=== PATIENT | female | born 1990 | race Caucasian/White ===

== ENCOUNTER 2016-07-19 09:00 | Emergency (ER) | payer OTHER ==
[2016-07-19 09:01] VITALS: BMI 46.5
[2016-07-19 09:53] VITALS: BP 117/77; PULSE 77; RESP 16; TEMP 98.9; O2SAT 99
--- NOTE | 2016-07-19 10:21 | C.PDOC ---
History Of Present Illness 25 yr old female presents to the ER for evaluation of rash on bilateral thighs for the past few days. Patient reports similar rash notice don daughter to the right shoulder and head for the past few days. Patient denies fever, chills, previous known allergies, cough, chest pain, SOB or wheezing. Time Seen by Provider: 07/19/16 09:55 Chief Complaint (Nursing): Abnormal Skin Integrity History Per: Patient History/Exam Limitations: no limitations Onset/Duration Of Symptoms: Days (Few days) Current Symptoms Are (Timing): Still Present Past Medical History Reviewed: Historical Data, Nursing Documentation, Vital Signs Vital Signs: Last Vital Signs Temp 98.9 F 07/19/16 09:51 Pulse 77 07/19/16 09:51 Resp 16 07/19/16 09:51 BP 117/77 07/19/16 09:51 Pulse Ox 99 07/19/16 10:39 - [facility] Procedures LARYGNOSCOPY AND OTH TRACHEOSCOPY (12/21/13) Family History: States: No Known Family Hx - Social History Hx Tobacco Use: No Hx Alcohol Use: No Hx Substance Use: No - Immunization History Hx Tetanus Toxoid Vaccination: Yes Hx Influenza Vaccination: Yes Hx Pneumococcal Vaccination: Yes Review Of Systems Except As Marked, All Systems Reviewed And Found Negative. Constitutional: Negative for: Fever, Chills Cardiovascular: Negative for: Chest Pain Respiratory: Negative for: Cough, Shortness of Breath, Wheezing Skin: Positive for: Rash (Bilateral thighs. ) Physical Exam - Physical Exam Appears: Well, Non-toxic, No Acute Distress Skin: Normal Color, Warm, Rash (erythematous, raised scaly patches with sharply defined edges to B/L thighs. No cellulitis.) Extremity: Normal ROM, No Pedal Edema, No Deformity Extremity: Bilateral: Atraumatic Neurological/Psych: Oriented x3, Normal Speech ED Course And Treatment O2 Sat by Pulse Oximetry: 99 Pulse Ox Interpretation: Normal Progress Note: On re-eavl, pt is afebrile, hemodynamicaly stable. NOn-toxic. PulseOx 99% RA. ENT: no acute findings. SKin: exam c/w timea corporis, (+) sick contact. Pt advised. ref. to f/u with PMD and Derm in 2-3 days for re- eval. return if any new changes. Disposition Counseled Patient/Family Regarding: Diagnosis, Need For Followup, Rx Given - Disposition Referrals: [facility] [Outside] Disposition: HOME/ ROUTINE Disposition Time: 09:55 Condition: STABLE Additional Instructions: Apply cream as prescribed Follow up with PMD In 2-3 days for re-evaluation. 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 - Scribe Statement The provider has reviewed the documentation as recorded by the Scribe Kaylee Fernández All medical record entries made by the Scribe were at my direction and personally dictated by me. I have reviewed the chart and agree that the record accurately reflects my personal performance of the history, physical exam, medical decision making, and the department course for this patient. I have also personally directed, reviewed, and agree with the discharge instructions and disposition.
== END 2016-07-19 10:46 | disposition home or self-care (01) ==
LOC: C.ER 09:00
DX: B35.4 Tinea corporis (principal)

== ENCOUNTER 2016-09-23 15:27 | Emergency (ER) | payer OTHER ==
[2016-09-23 15:27] VITALS: BMI 46.5
[2016-09-23 15:50] VITALS: RESP 18; TEMP 97.8
[2016-09-23] MEDS ORDERED: Apap-Butalbital-Caffeine 325-50-40mg Tab PO STA (16:05)
[2016-09-23] MEDS ORDERED: Apap-Butalbital-Caffeine 325-50-40mg Tab ONE (16:09)
--- NOTE | 2016-09-23 16:40 | C.PDOC ---
Time Seen by Provider: 09/23/16 15:50 Chief Complaint (Nursing): Headache History Per: Patient Onset/Duration Of Symptoms: Days (3), Gradual Current Symptoms Are (Timing): Still Present Severity: Moderate Quality: "Pain" Associated Symptoms: denies: Photophobia, Blurred Vision, Nausea, Vomiting, Extremity Weakness Additional History Per: Prior Records Past Medical History Reviewed: Historical Data, Nursing Documentation, Vital Signs Vital Signs: Last Vital Signs Temp 97.8 F 09/23/16 15:46 Pulse 88 09/23/16 15:46 Resp 18 09/23/16 15:46 BP 104/67 09/23/16 15:46 Pulse Ox 97 09/23/16 16:40 - Medical History PMH: No Chronic Diseases Surgical History: - [facility] Procedures LARYGNOSCOPY AND OTH TRACHEOSCOPY (12/21/13) Family History: States: Unknown Family Hx - Social History Hx Tobacco Use: No Hx Alcohol Use: No Hx Substance Use: No - Immunization History Hx Tetanus Toxoid Vaccination: Yes Hx Influenza Vaccination: Yes Hx Pneumococcal Vaccination: Yes Review Of Systems Except As Marked, All Systems Reviewed And Found Negative. Constitutional: Negative for: Fever, Weakness Eyes: Negative for: Pain, Vision Change ENT: Negative for: Nose Congestion, Throat Pain Cardiovascular: Negative for: Chest Pain Respiratory: Negative for: Shortness of Breath Gastrointestinal: Negative for: Nausea, Vomiting, Abdominal Pain Musculoskeletal: Positive for: Back Pain. Negative for: Neck Pain Skin: Negative for: Rash Neurological: Positive for: Headache. Negative for: Weakness, Numbness, Incoordination, Change in Speech, Confusion, Seizures, Altered Mental Status Physical Exam - Physical Exam Appears: Non-toxic, No Acute Distress Skin: Normal Color, Warm, Dry, No Rash Head: Atraumatic, Normacephalic Eye(s): bilateral: Normal Inspection, PERRL, EOMI Neck: Normal ROM, Supple Cardiovascular: Rhythm Regular Respiratory: Normal Breath Sounds, No Accessory Muscle Use Gastrointestinal/Abdominal: Soft, No Tenderness Back: No CVA Tenderness Extremity: Normal ROM Neurological/Psych: Oriented x3, Normal Speech, Normal Cognition, No Cerebellar Signs, Normal Motor, Normal Sensation ED Course And Treatment O2 Sat by Pulse Oximetry: 97 Pulse Ox Interpretation: Normal Reassessment Condition: Improved Disposition Counseled Patient/Family Regarding: Diagnosis, Need For Followup, Rx Given - Disposition Disposition: HOME/ ROUTINE Disposition Time: 16:50 Condition: STABLE Additional Instructions: Follow up with your doctor for further evaluation and treatment. Return to the ER if you develop vomiting, fever, stiff neck, worsening of symptoms or if you have any other concerns. Prescriptions: Acetaminophen/Butalbital/Caf [Fioricet] 1 tab PO TID PRN #20 tab PRN Reason: Headache Instructions: General Headache (ED) - Clinical Impression Clinical Impression: Headache
[2016-09-23 16:58] VITALS: BP 105/67; PULSE 76; O2SAT 98
== END 2016-09-23 16:57 | disposition home or self-care (01) ==
LOC: C.ER 15:27
DX: R51 Headache (principal)

== ENCOUNTER 2016-09-29 09:27 | Emergency (ER) | payer OTHER ==
[2016-09-29 09:27] VITALS: BMI 46.5
[2016-09-29 09:43] VITALS: BP 115/74; PULSE 89; RESP 18; TEMP 98; O2SAT 98
--- NOTE | 2016-09-29 09:48 | C.PDOC ---
History Of Present Illness 25 y/o female presents to the ED with complains of nasal congestion and mild dry nonproductive cough x2 days. Pt drank herbal tea as home remedy. Missed work today. Denies fever, sore throat, SOB, vomiting or any other complaints. Time Seen by Provider: 09/29/16 09:43 Chief Complaint (Nursing): Cough, Cold, Congestion History Per: Patient History/Exam Limitations: no limitations Onset/Duration Of Symptoms: Days Current Symptoms Are (Timing): Still Present Sick Contacts (Context): None Associated Symptoms: Cough, Nasal Congestion. denies: Fever, Chills, Sore Throat, Sputum, Vomiting Severity: Mild Recent travel outside of the [place]: No Past Medical History Reviewed: Historical Data, Nursing Documentation, Vital Signs Vital Signs: Last Vital Signs Temp 98 F 09/29/16 09:43 Pulse 89 09/29/16 09:43 Resp 18 09/29/16 09:43 BP 115/74 09/29/16 09:43 Pulse Ox 98 09/29/16 09:48 Surgical History: - [facility] Procedures LARYGNOSCOPY AND OTH TRACHEOSCOPY (12/21/13) Family History: States: Unknown Family Hx - Social History Hx Tobacco Use: No Hx Alcohol Use: No Hx Substance Use: No - Immunization History Hx Tetanus Toxoid Vaccination: Yes Hx Influenza Vaccination: Yes Hx Pneumococcal Vaccination: Yes Review Of Systems Except As Marked, All Systems Reviewed And Found Negative. Constitutional: Negative for: Fever, Chills ENT: Positive for: Nose Congestion. Negative for: Throat Pain Respiratory: Positive for: Cough. Negative for: Shortness of Breath Gastrointestinal: Negative for: Vomiting Physical Exam - Physical Exam Appears: Non-toxic, No Acute Distress Skin: Warm, Dry, No Rash Head: Atraumatic, Normacephalic Ear(s): Bilateral: Normal Nose: Normal Oral Mucosa: Moist Throat: Normal, No Erythema Neck: Normal, Normal ROM, Supple Chest: Symmetrical Cardiovascular: Rhythm Regular, No Murmur Respiratory: Normal Breath Sounds, No Rales, No Rhonchi, No Wheezing Gastrointestinal/Abdominal: Normal Exam, Soft, No Tenderness Extremity: Bilateral: Atraumatic Neurological/Psych: Oriented x3 ED Course And Treatment O2 Sat by Pulse Oximetry: 98 (room air) Pulse Ox Interpretation: Normal Medical Decision Making Medical Decision Making: nasal congestion dry non-prod cough c/w seasonal allergies vs viral syndrome ( summertime seasonal allergies are predominant now) Disposition Doctor Will See Patient In The: Office Counseled Patient/Family Regarding: Studies Performed, Diagnosis - Disposition Referrals: [facility] at [facility] [Outside] Disposition: HOME/ ROUTINE Disposition Time: 09:48 Condition: GOOD Additional Instructions: continue Dayquil/Nyquil as directed for symptomatic relief. Follow-up in our Clinic as needed. Forms: Work Excuse - Clinical Impression Clinical Impression: URI with cough and congestion - Scribe Statement The provider has reviewed the documentation as recorded by the Richi Samuel Provider Attestation: All medical record entries made by the Richi were at my direction and personally dictated by me. I have reviewed the chart and agree that the record accurately reflects my personal performance of the history, physical exam, medical decision making, and the department course for this patient. I have also personally directed, reviewed, and agree with the discharge instructions and disposition.
[2016-09-29] MEDS ORDERED: guaiFENesin 100 mg/5 ml Syrup UD ONE (10:01)
[2016-09-29] MEDS: guaiFENesin 100 mg/5 ml Syrup UD PO STA (10:01)
== END 2016-09-29 10:02 | disposition home or self-care (01) ==
LOC: C.ER 09:27
DX: J06.9 Acute upper respiratory infection, unspecified (principal); R05 Cough; R09.81 Nasal congestion

== ENCOUNTER 2016-10-15 15:02 | Emergency (ER) | payer OTHER ==
[2016-10-15 15:02] VITALS: BMI 46.5
[2016-10-15 15:08] VITALS: TEMP 98.9
[2016-10-15] MEDS ORDERED: Penicillin G Benz 600,000 Unit/ml Syr IM STA (15:35)
--- NOTE | 2016-10-15 15:41 | C.PDOC ---
History Of Present Illness 26 y/o female presents to the ED with complaints of sore throat and redness x2 days, also noting pus this morning. Pt also reports pain with swallowing. Denies drooling, change in voice, cough, nasal congestion, fever or any other complaints. Time Seen by Provider: 10/15/16 15:15 Chief Complaint (Nursing): ENT Problem History Per: Patient History/Exam Limitations: None Onset/Duration Of Symptoms: Days Current Symptoms Are (Timing): Still Present Symptoms Have Been: Continuous Severity: Moderate Anticoagulant/Antiplatlet Use?: No Past Medical History Reviewed: Historical Data, Nursing Documentation, Vital Signs Vital Signs: Last Vital Signs Temp 98.9 F 10/15/16 15:06 Pulse 88 10/15/16 15:45 Resp 18 10/15/16 15:45 BP 128/75 10/15/16 15:45 Pulse Ox 98 10/15/16 15:45 Surgical History: - [facility] Procedures LARYGNOSCOPY AND OTH TRACHEOSCOPY (12/21/13) Family History: States: Unknown Family Hx - Social History Hx Tobacco Use: No Hx Alcohol Use: No Hx Substance Use: No - Immunization History Hx Tetanus Toxoid Vaccination: Yes Hx Influenza Vaccination: Yes Hx Pneumococcal Vaccination: Yes Review Of Systems Except As Marked, All Systems Reviewed And Found Negative. Constitutional: Negative for: Fever, Chills ENT: Positive for: Throat Pain, Other (pus at back of throat). Negative for: Nose Congestion Respiratory: Negative for: Cough Physical Exam - Physical Exam Appears: Non-toxic, No Acute Distress Skin: Warm, Dry, No Rash Head: Atraumatic, Normacephalic Ear(s): Bilateral: Normal Nose: Normal Oral Mucosa: Moist Throat: Erythema, Exudate (bilateral), Other (uvula midline) Lymphatic: Adenopathy (cervical) Chest: Symmetrical Cardiovascular: Rhythm Regular, No Murmur Respiratory: Normal Breath Sounds, No Rales, No Rhonchi, No Wheezing Gastrointestinal/Abdominal: Normal Exam, Soft, No Tenderness Neurological/Psych: Oriented x3, Normal Speech ED Course And Treatment O2 Sat by Pulse Oximetry: 100 (room air) Pulse Ox Interpretation: Normal Medical Decision Making Medical Decision Making: Treat patient for strep/pharyngitis Patient wanted to Bicillin IM shot instead of the pills. She has no allergies to any medications. She is able to tolerate PO food and fluids. She will f/u with the clinic in 2 days. Disposition Counseled Patient/Family Regarding: Diagnosis, Need For Followup, Rx Given - Disposition Referrals: at [facility] [Outside] Disposition: HOME/ ROUTINE Disposition Time: 15:45 Condition: GOOD Additional Instructions: Ms Michel, thank you for letting us take care of you today. Your provider was Dr. De Guzman. You were treated for Pharyngitis. The emergency medical care you received today was directed at your acute symptoms. If you were prescribed any medication, please fill it and take as directed. It may take several days for your symptoms to resolve. Return to the Emergency Department if your symptoms worsen, do not improve, or if you have any other problems. Please contact your doctor or call one of the physicians/clinics you have been referred to that are listed on the Patient Visit Information form that is included in your discharge packet. Bring any paperwork you were given at discharge with you along with any medications you are taking to your follow up visit. Our treatment cannot replace ongoing medical care by a primary care provider (PCP) outside of the emergency department. Thank you for allowing the [facility] team to be part of your care today. If you had an X-Ray or CT scan: A Radiologist will review the ED reading if any change in treatment is needed we will contact you. If you had a blood, urine, or wound culture: It will take several days for the results, if any change in treatment is needed we will contact you. If you had an STI test: It will take 48 hours for the results. Please call after 1 week if you have not heard back. Instructions: Pharyngitis (ED) Forms: [employer] ([place]wana) - Clinical Impression Clinical Impression: Pharyngitis - Scribe Statement The provider has reviewed the documentation as recorded by the Richi Samuel Provider Attestation: All medical record entries made by the Richi were at my direction and personally dictated by me. I have reviewed the chart and agree that the record accurately reflects my personal performance of the history, physical exam, medical decision making, and the department course for this patient. I have also personally directed, reviewed, and agree with the discharge instructions and disposition.
[2016-10-15] MEDS ORDERED: Penicillin G Benzathine 1.2 Mill Unit/2 ml Syr IM ONE (15:42)
[2016-10-15 15:45] VITALS: BP 128/75; PULSE 88; RESP 18
[2016-10-15 16:48] VITALS: O2SAT 100
== END 2016-10-15 15:54 | disposition home or self-care (01) ==
LOC: C.ER 15:02
DX: J02.9 Acute pharyngitis, unspecified (principal)
CPT/HCPCS: 96372; 99283; J2510

== ENCOUNTER 2017-05-31 15:20 | Emergency (ER) | payer OTHER ==
[2017-05-31 15:20] VITALS: BMI 46.5
[2017-05-31 16:11] VITALS: TEMP 98.4
--- NOTE | 2017-05-31 17:17 | C.PDOC ---
History Of Present Illness 26 year old female presents to the ED for evaluation of chest congestion and non -productive cough since yesterday. Patient denies history of asthma, fever, or any other associated symptoms. 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 NO ASTHMA, FEVER OTHER ASSOC SX EXAM NARD HEENT NEG LUNGS CTA B/L NO W/R/R REMAINDER NEG Time Seen by Provider: 05/31/17 16:19 Chief Complaint (Nursing): ENT Problem History Per: Patient History/Exam Limitations: no limitations Onset/Duration Of Symptoms: Hrs Current Symptoms Are (Timing): Still Present Associated Symptoms: Cough, Other (chest congestion ). denies: Fever, Sputum Additional History Per: Patient Past Medical History Reviewed: Historical Data, Nursing Documentation, Vital Signs Vital Signs: Last Vital Signs Temp 98.4 F 05/31/17 16:08 Pulse 80 05/31/17 17:57 Resp 16 05/31/17 17:57 BP 108/75 05/31/17 17:57 Pulse Ox 98 05/31/17 17:57 - Medical History PMH: No Chronic Diseases Surgical History: - [facility] Procedures LARYGNOSCOPY AND OTH TRACHEOSCOPY (12/21/13) Family History: States: Unknown Family Hx - Social History Hx Tobacco Use: No Hx Alcohol Use: No Hx Substance Use: No - Immunization History Hx Tetanus Toxoid Vaccination: Yes Hx Influenza Vaccination: Yes Hx Pneumococcal Vaccination: Yes Review Of Systems Constitutional: Negative for: Fever Respiratory: Positive for: Cough, Other (chest congestion ). Negative for: Sputum Physical Exam - Physical Exam Appears: Non-toxic, No Acute Distress, Other (no acute respiratory distress ) Skin: Normal Color, Warm, Dry Head: Atraumatic, Normacephalic Eye(s): bilateral: Normal Inspection Ear(s): Bilateral: Normal Nose: Normal, No Discharge Oral Mucosa: Moist Throat: Normal, No Erythema, No Exudate Neck: Supple Chest: Symmetrical, No Deformity, No Tenderness Cardiovascular: Rhythm Regular, No Murmur Respiratory: Normal Breath Sounds, No Rales, No Rhonchi, No Wheezing Extremity: Normal ROM, Capillary Refill (less than 2 seconds ) Neurological/Psych: Oriented x3, Normal Speech, Normal Cognition Gait: Steady ED Course And Treatment O2 Sat by Pulse Oximetry: 98 (on RA) Pulse Ox Interpretation: Normal - Radiology CXR: Interpreted by Ri CXR Interpretation: Yes: Other (?POST INFIL) Progress Note: CXR ordered and reviewed. Disposition Counseled Patient/Family Regarding: Studies Performed, Diagnosis, Need For Followup - Disposition Referrals: [facility] [Other] [facility] [Outside] [facility] [Outside] Disposition: HOME/ ROUTINE Disposition Time: 17:35 Condition: GOOD Instructions: Acute Bronchitis (ED) Forms: [facility] (Slovak), Work Excuse - Clinical Impression Clinical Impression: Bronchitis - Scribe Statement The provider has reviewed the documentation as recorded by the Scribe (Mey Padilla) Provider Attestation: All medical record entries made by the Scribe were at my direction and personally dictated by me. I have reviewed the chart and agree that the record accurately reflects my personal performance of the history, physical exam, medical decision making, and the department course for this patient. I have also personally directed, reviewed, and agree with the discharge instructions and disposition.
--- NOTE | 2017-05-31 17:53 | RAD ---
HISTORY: COUGH COMPARISON: Chest x-ray performed 07/01/16 TECHNIQUE: Chest PA and lateral FINDINGS: Examination limited by habitus. LUNGS: Subtle retrocardiac opacity likely minimal atelectasis. Developing infiltrate cannot be excluded in the proper clinical setting. Please note that chest x-ray has limited sensitivity for the detection of pulmonary masses. PLEURA: No significant pleural effusion identified. No definite pneumothorax . CARDIOVASCULAR: Heart size appears within normal limits. OSSEOUS STRUCTURES: No acute osseous abnormality identified. VISUALIZED UPPER ABDOMEN: Unremarkable. OTHER FINDINGS: None. IMPRESSION: Subtle retrocardiac opacity, likely minimal atelectasis. Developing infiltrate cannot be excluded in the proper clinical setting.
[2017-05-31 17:57] VITALS: BP 108/75; PULSE 80; RESP 16; O2SAT 98
== END 2017-05-31 17:57 | disposition home or self-care (01) ==
LOC: C.ER 15:20
DX: J40 Bronchitis, not specified as acute or chronic (principal)

== ENCOUNTER 2017-07-26 08:50 | Emergency (ER) | payer MEDICAID, OTHER ==
[2017-07-26 08:51] VITALS: BMI 46.5
[2017-07-26 08:56] VITALS: RESP 18
[2017-07-26 10:06] LABS: HCG,QUALITATIVE URINE NEGATIVE (NEGATIVE)
[2017-07-26 10:12] LABS: SQUAMOUS EPITHIAL 2 /hpf (0-5); URINE BACTERIA RARE (<OCC); URINE BILIRUBIN NEGATIVE (NEGATIVE); URINE BLOOD NEGATIVE (NEGATIVE); URINE CLARITY Clear (Clear); URINE COLOR Yellow (YELLOW); URINE GLUCOSE (UA) NORMAL (Normal); URINE LEUKOCYTE ESTERASE NEG Leu/uL (Negative); URINE PROTEIN NEGATIVE (NEGATIVE); URINE UROBILINOGEN NORMAL mg/dL (0.2-1.0)
[2017-07-26 10:23] LABS: BASO % 0.7 % (0.0-2.0); EOS # 0.1 K/uL (0.0-0.7); EOS % 0.9 % (0.0-4.0); HEMOGLOBIN 13.1 g/dL (11.0-16.0); LYMPH # 1.8 K/uL (1.0-4.3); LYMPH % 31.6 % (20.0-40.0); MEAN CORPUSCULAR HEMOGLOBIN 29.4 pg (27.0-31.0); MEAN CORPUSCULAR HGB CONC 33.6 g/dL (33.0-37.0); MEAN PLATELET VOLUME 8.1 fL (7.2-11.7); MONO # 0.2 K/uL (0.0-0.8); MONO % 3.9 % (0.0-10.0); NEUT # 3.7 K/uL (1.8-7.0); NEUT % 62.9 % (50.0-75.0); RBC 4.47 Mil/uL (3.80-5.20); RED CELL DISTRIBUTION WIDTH 13.7 % (11.5-14.5); WHITE BLOOD COUNT 5.8 K/uL (4.8-10.8)
[2017-07-26 10:26] LABS: MEAN CELL VOLUME 87.5 fL (81.0-99.0)
[2017-07-26 10:55] LABS: ALB/GLOB RATIO 1.1 (1.0-2.1); ALT/SGPT 15 U/L (9-52); AST/SGOT 21 U/L (14-36); BLOOD UREA NITROGEN 13 mg/dL (7-17); CALCIUM 8.9 mg/dl (8.6-10.4); GFR AFRICAN-AMERICAN > 60; GFR NON-AFRICAN AMERICAN > 60
--- NOTE | 2017-07-26 11:24 | C.PDOC ---
History Of Present Illness 26 y/o female, , presents to the ER complaining of vaginal spotting which began in the morning today. Patient notes that she had a positive test at home last week. Patient states that her LMP was 1 year ago. She reports that her last Depo-Provera injection in March 2017. She did not receive a Depo- Provera injection in May 2017 because she wanted to become . Patient denies having abdominal pain. Time Seen by Provider: 07/26/17 09:00 Chief Complaint (Nursing): Female Genitourinary History Per: Patient History/Exam Limitations: no limitations Onset/Duration Of Symptoms: Days Current Symptoms Are (Timing): Still Present Severity: Moderate Past Medical History Reviewed: Historical Data, Nursing Documentation, Vital Signs Vital Signs: Last Vital Signs Temp 98.3 F 07/26/17 13:33 Pulse 84 07/26/17 13:33 Resp 18 07/26/17 13:33 BP 100/64 07/26/17 13:33 Pulse Ox 100 07/26/17 13:33 - Medical History PMH: No Chronic Diseases Surgical History: - [facility] Procedures LARYGNOSCOPY AND OTH TRACHEOSCOPY (12/21/13) Family History: States: No Known Family Hx - Social History Hx Tobacco Use: No Hx Alcohol Use: No Hx Substance Use: No - Immunization History Hx Tetanus Toxoid Vaccination: No Hx Influenza Vaccination: No Hx Pneumococcal Vaccination: No Review Of Systems Except As Marked, All Systems Reviewed And Found Negative. Constitutional: Negative for: Fever, Chills Gastrointestinal: Negative for: Nausea, Vomiting, Abdominal Pain, Diarrhea Genitourinary: Positive for: Other (vaginal bleeding) Physical Exam - Physical Exam Appears: Non-toxic, No Acute Distress Skin: Normal Color, Warm, Dry Head: Atraumatic, Normacephalic Eye(s): bilateral: Normal Inspection Nose: Normal Oral Mucosa: Moist Neck: Supple Chest: Symmetrical Cardiovascular: Rhythm Regular Respiratory: Normal Breath Sounds, No Rales, No Rhonchi, No Wheezing Gastrointestinal/Abdominal: Normal Exam, Soft, No Tenderness Extremity: Normal ROM Neurological/Psych: Oriented x3, Normal Speech ED Course And Treatment - Laboratory Results Result Diagrams: 07/26/17 10:14 07/26/17 10:14 O2 Sat by Pulse Oximetry: 98 (RA) Pulse Ox Interpretation: Normal Progress Note: Labs, UA and UCG. Urine preg was negative, confirmed with serum HCG. Patient was d/c home with OBGYN follow up. Disposition - Disposition Disposition: HOME/ ROUTINE Disposition Time: 13:31 Condition: STABLE Additional Instructions: Follow up with your OBGYN as needed. Return to ED if feel worse. 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 - Scribe Statement The provider has reviewed the documentation as recorded by the Diaibe Cheko Fuentes Provider Attestation All medical record entries made by the Diaibjonelle were at my direction and personally dictated by me. I have reviewed the chart and agree that the record accurately reflects my personal performance of the history, physical exam, medical decision making, and the department course for this patient. I have also personally directed, reviewed, and agree with the discharge instructions and disposition.
[2017-07-26 13:34] VITALS: BP 100/64; PULSE 84; TEMP 98.3
[2017-07-26 17:30] VITALS: O2SAT 98
== END 2017-07-26 13:43 | disposition home or self-care (01) ==
LOC: C.ER 08:50
DX: N92.6 Irregular menstruation, unspecified (principal)

== ENCOUNTER 2017-08-29 11:46 | Emergency (ER) | payer OTHER ==
[2017-08-29 11:46] VITALS: BMI 46.5
[2017-08-29 12:26] VITALS: BP 121/78; PULSE 89; RESP 18; TEMP 98.3; O2SAT 100
[2017-08-29 13:22] LABS: HCG,QUALITATIVE URINE NEGATIVE (NEGATIVE)
[2017-08-29 13:33] LABS: SQUAMOUS EPITHIAL 7 /hpf (0-5); URINE BACTERIA RARE (<OCC); URINE BILIRUBIN NEGATIVE (NEGATIVE); URINE BLOOD NEGATIVE (NEGATIVE); URINE CLARITY Clear (Clear); URINE COLOR Yellow (YELLOW); URINE GLUCOSE (UA) NORMAL (Normal); URINE LEUKOCYTE ESTERASE NEG Leu/uL (Negative); URINE PROTEIN NEGATIVE (NEGATIVE); URINE UROBILINOGEN NORMAL mg/dL (0.2-1.0)
--- NOTE | 2017-08-29 13:34 | C.PDOC ---
History Of Present Illness 26 y/o female c/o diffuse abdominal pain x 2 days with nausea, no vomiting or diarrhea. . worse in lower abdomen. pt reports lmp 1 yr ago, was on depo shot, last one in mar 2017, no protection with sexual actibity. pt reports one positive and one neg home test on same day about 2 weeks ago. no fever or chills. no dysuria, +frequency. no vaginal bleeding or discharge. Time Seen by Provider: 08/29/17 13:10 Chief Complaint (Nursing): Abdominal Pain History Per: Patient History/Exam Limitations: no limitations Onset/Duration Of Symptoms: Days Current Symptoms Are (Timing): Still Present Location Of Pain/Discomfort: Diffuse Past Medical History Reviewed: Historical Data, Nursing Documentation, Vital Signs Vital Signs: Last Vital Signs Temp 98.3 F 08/29/17 12:24 Pulse 89 08/29/17 12:24 Resp 18 08/29/17 12:24 BP 121/78 08/29/17 12:24 Pulse Ox 100 08/29/17 14:08 - Medical History PMH: No Chronic Diseases Surgical History: - [facility] Procedures LARYGNOSCOPY AND OTH TRACHEOSCOPY (12/21/13) Family History: States: No Known Family Hx - Social History Hx Tobacco Use: No Hx Alcohol Use: No Hx Substance Use: No - Immunization History Hx Tetanus Toxoid Vaccination: No Hx Influenza Vaccination: No Hx Pneumococcal Vaccination: No Review Of Systems Constitutional: Negative for: Fever, Chills Gastrointestinal: Positive for: Nausea, Abdominal Pain. Negative for: Vomiting , Diarrhea Genitourinary: Positive for: Frequency. Negative for: Dysuria, Hematuria Skin: Negative for: Rash Physical Exam - Physical Exam Appears: Non-toxic, No Acute Distress, Other (Morbidly obese) Skin: Warm, Dry, No Rash Head: Atraumatic, Normacephalic Oral Mucosa: Moist Cardiovascular: Rhythm Regular Respiratory: Normal Breath Sounds, No Rales, No Rhonchi Gastrointestinal/Abdominal: Bowel Sounds, Soft, Tenderness (mild tenderness suprapubic area and left pelvic area), No Distention, No Guarding, No Rebound Back: No CVA Tenderness Pelvic: Normal External Exam, Normal Speculum Exam, No Vaginal Bleeding, Vaginal Discharge, No Cervical Motion Tenderness (cervix not visualized due to pt's body habitus, whitish discharge in vault. ), No Adnexal Tenderness, No Tender Uterus Extremity: Normal ROM, Capillary Refill (<2 seconds) Neurological/Psych: Oriented x3, Normal Speech, Normal Cognition ED Course And Treatment O2 Sat by Pulse Oximetry: 100 (RA) Pulse Ox Interpretation: Normal Medical Decision Making Medical Decision Making: pt with mild suprapubic tenderness, not , no cmt. pt (and partner) with recent neg gc/chlamydia tests. npo cmt on exam. pt appears comfortable. no vomiting in ed, has been pn phoine entire time in ed. Disposition Counseled Patient/Family Regarding: Studies Performed, Diagnosis, Need For Followup - Disposition Disposition: HOME/ ROUTINE Disposition Time: 15:51 Condition: GOOD Additional Instructions: Please follow up with your front desk team member in a few days if pain persists. Tylenol for pain if needed. Return to ER for a any worsening symptoms. Forms: [facility] (Korean), General Discharge Instructions - Clinical Impression Clinical Impression: Suprapubic abdominal pain - PA / PROBATE PARALEGAL / Resident Statement MD/DO has reviewed & agrees with the documentation as recorded. - Scribe Statement The provider has reviewed the documentation as recorded by the Scribjonelle Hill All medical record entries made by the Richi were at my direction and personally dictated by me. I have reviewed the chart and agree that the record accurately reflects my personal performance of the history, physical exam, medical decision making, and the department course for this patient. I have also personally directed, reviewed, and agree with the discharge instructions and disposition.
== END 2017-08-29 16:02 | disposition home or self-care (01) ==
LOC: C.ER 11:46
DX: R10.30 Lower abdominal pain, unspecified (principal)

== ENCOUNTER 2017-10-02 15:45 | Emergency (ER) | payer OTHER ==
[2017-10-02 16:23] VITALS: BMI 45.7
[2017-10-02 17:54] LABS: URINE CLARITY Clear (Clear); URINE COLOR Straw (YELLOW)
[2017-10-02 17:55] LABS: SQUAMOUS EPITHIAL 3 /hpf (0-5); URINE BILIRUBIN NEGATIVE (NEGATIVE); URINE BLOOD NEGATIVE (NEGATIVE); URINE GLUCOSE (UA) NORMAL (Normal); URINE LEUKOCYTE ESTERASE NEG Leu/uL (Negative); URINE PROTEIN NEGATIVE (NEGATIVE); URINE UROBILINOGEN NORMAL mg/dL (0.2-1.0)
[2017-10-02 18:07] LABS: BARBITURATES, UR NEGATIVE (NEGATIVE); BENZODIAZEPINES, UR NEGATIVE (NEGATIVE); OPIATES, UR NEGATIVE (NEGATIVE); PHENCYCLIDINE, UR NEGATIVE (NEGATIVE)
--- NOTE | 2017-10-02 18:38 | OBHP ---
Datetime: 10/02/2017 16:33 IP Chief Complaint Other: Pelvic pain IP Adm Impression Other: Previous C/S x 2; not Admit Comment, IP Provider: 26 y.o. P2012, LMP unsure (?02/2017), LELO 01/02/18, EGA 26w 6d, c/o lower abdominal pain onset 2000 hours 10/01/17; worsened 1200 hours today; pain scale 5/10. Pain described a s a "hard punch". Had sexual intercourse today 1330 hours. Reports (+)FM. Denies LOF, VB. care: none in past 3 months. P Ob: C/S x 2: both "past my due date". 2009, male, 9lb 3/4oz. 2012, 8 1/2 lb; both at [place], [place]. Spont Ab x 2015, "2 months", D_C. 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 (+) chlamydia, 2016. No Pap to date. PMH: Obesity PSH: C/S x 2 NKDA Meds: PNV - QD; iron - BID Soc Hx: denies tobacco and illicit drug use. (+) red wine at night. With current sexual partner x 1 1/2 years; lives with him. 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 Father alive 50 y.o. Maternal fam h/o cardiac disease P.E.: as above. Morbidly obese in NAD. Awake, alert, oriented to time, person and place. Pleasant and cooperative. Assessment: 26 y.o. P2012, secondary amenorrhea, due to DMPA - not . R/O UTI. Plan: 1) Pelvic ultrasound 2) Urine U/A and drug screen Addendum: 1820 hours Ultrasound report: no IUP; normal ovaries bilaterally. with right small ovarian simple cyst. This was discussed with patient and significant partner, both of whom appear sad. Patient reports c/o nausea and "feelings" of the baby moving. Patient advised to follow up with medical provider re: GI complaints. The sensaton of movement could be related to intestinal motility. Lastly, it was expl ained, no menses is common on DMPA. Patient discharged home in stable condition. Pelvic Type - PN: Adequate Extremities - PN: Normal Abdomen - PN: Abnormal Back - PN: Normal Breast - PN: Not Done Lungs - PN: Normal Heart - PN: Normal Thyroid - PN: Not Done Neurologic - PN: Normal HEENT - PN: Normal General - PN: Normal FHR - Baseline A Provider: not applicable Contraction Comments Provider: none Comments, ACOG Physical Exam: Abdomen: Obese. Soft. Non tender in all quadrants. Healed Pfannenstiel scar. Bedside sono: NO IUP appreciated All other systems reviewed and are negative Gestation - Est Wks by US: not applicable EGA AdmitDate IP: 26.6 Vital Signs Provider: Reviewed; Within Normal Limits IP Chief Complaint: Other Dilatation, Provider: 0 Effacement, Provider: long Station, Provider: N/A Genitourinary Exam: Normal DTRs - PN: Normal
[2017-10-02 22:38] VITALS: BP 115/67; PULSE 86; TEMP 98.2
--- NOTE | 2017-10-03 08:26 | US ---
Pelvic ultrasound History: Pelvic pain. Unable to obtain heart rate. Comparison: None available. Technique: Real-time sonography was performed through the pelvis utilizing transabdominal and transvaginal techniques. Findings: status unknown. Uterus: 11.9 x 4.3 x 4.7 centimeters. Heterogeneous echotexture. Anteverted. Endometrium measures 4 millimeters, within normal limits. Cervix measures 3.7 centimeters. No discrete intrauterine identified. Right ovary: 4.1 x 3 1 x 4.1 centimeters. Normal flow. Hypoechoic cyst measuring 2.1 x 2.1 x 2.2 centimeters. Left ovary: 2.7 x 1.2 x 2.1 centimeters. Normal flow. Impression: status unknown. No discrete intrauterine identified. In the setting of a positive test and lack of discrete intrauterine , considerations may include an early versus missed versus ectopic . Clinical correlation. Continued interval followup may be helpful clinically indicated. 2.2 cm right ovarian cyst. These findings were preliminarily reported at 6:27 p.m. on 10/02/[address] Dick Sommers from [facility].
== END 2017-10-02 18:35 | disposition home or self-care (01) ==
LOC: C.EROB 15:45
DX: R10.2 Pelvic and perineal pain (principal); N83.291 Other ovarian cyst, right side

== ENCOUNTER 2017-11-06 15:49 | Emergency (ER) | payer SELFPAY ==
[2017-11-06 16:19] VITALS: BMI 46.5
[2017-11-06 16:24] VITALS: TEMP 98.6; O2SAT 97
--- NOTE | 2017-11-06 17:13 | C.PDOC ---
History Of Present Illness 27 year old female patient presents to the ER with c/o breast tenderness and pelvic cramping. Patient reports her menstrual cycle was supposed to start 4 days ago. Patient states she wants to know if she is . Denies vaginal discharge, vaginal bleeding, back pain, fever, n/v, or abdominal pain. Did not take a test at home. Time Seen by Provider: 11/06/17 16:41 Chief Complaint (Nursing): Breast Problem History Per: Patient History/Exam Limitations: no limitations Onset/Duration Of Symptoms: Hrs Current Symptoms Are (Timing): Still Present Past Medical History Reviewed: Historical Data, Nursing Documentation, Vital Signs Vital Signs: Last Vital Signs Temp 98.6 F 11/06/17 16:19 Pulse 85 11/06/17 18:30 Resp 18 11/06/17 18:30 BP 121/73 11/06/17 18:30 Pulse Ox 97 11/06/17 18:45 Surgical History: - [facility] Procedures LARYGNOSCOPY AND OTH TRACHEOSCOPY (12/21/13) Family History: States: Unknown Family Hx - Social History Hx Tobacco Use: No Hx Alcohol Use: Yes Hx Substance Use: No - Immunization History Hx Tetanus Toxoid Vaccination: No Hx Influenza Vaccination: No Hx Pneumococcal Vaccination: No Review Of Systems Except As Marked, All Systems Reviewed And Found Negative. Constitutional: Positive for: Other (breast tenderness) Genitourinary: Positive for: Pelvic Pain (cramping) Physical Exam - Physical Exam Appears: Well, Non-toxic, No Acute Distress Skin: Normal Color, Warm, Dry Head: Atraumatic, Normacephalic Eye(s): bilateral: Normal Inspection, EOMI Nose: Normal Oral Mucosa: Moist Neck: Normal ROM, Supple Chest: Symmetrical, Tenderness (diffuse breast tenderness) Cardiovascular: Rhythm Regular Respiratory: Normal Breath Sounds, No Accessory Muscle Use, Other (speakiing in full sentences) Gastrointestinal/Abdominal: Bowel Sounds, Soft, Tenderness (suprapubic tenderness) Pelvic: Other (pt declined) Extremity: Normal ROM Neurological/Psych: Oriented x3, Normal Speech, No Other (focal deficits) Gait: Steady ED Course And Treatment O2 Sat by Pulse Oximetry: 97 (RA) Pulse Ox Interpretation: Normal Progress Note: Plan: -- Urine Cx. -- UA. UA negative. Preg negative. symptoms likely premenses. Instructed to follow up with GUN NUMBERER in 1-2 days. Return to ER if symtpoms persist or worsen. Disposition - Disposition Disposition: HOME/ ROUTINE Disposition Time: 18:21 Condition: STABLE Additional Instructions: Follow up with your doctor in1 -2 days. Return to ER if symptoms persist or worsen. Instructions: Menstrual Cramps (DC) Forms: [facility] (Solomon Islander) - Clinical Impression Clinical Impression: Dysmenorrhea
[2017-11-06 18:13] LABS: SQUAMOUS EPITHIAL 3 /hpf (0-5); URINE BACTERIA RARE (<OCC); URINE BILIRUBIN NEGATIVE (NEGATIVE); URINE BLOOD NEGATIVE (NEGATIVE); URINE CLARITY Clear (Clear); URINE COLOR Yellow (YELLOW); URINE GLUCOSE (UA) NORMAL (Normal); URINE LEUKOCYTE ESTERASE NEG Leu/uL (Negative); URINE PROTEIN NEGATIVE (NEGATIVE)
[2017-11-06 18:19] LABS: HCG,QUALITATIVE URINE NEGATIVE (NEGATIVE)
[2017-11-06 18:32] VITALS: BP 121/73; PULSE 85; RESP 18
--- NOTE | 2017-11-08 17:54 | CARD ---
APPROVED REPORT Date of service: 11/06/2017 EKG Measurement Heart [id number] <Conclusion> Normal sinus rhythm Normal ECG
== END 2017-11-06 18:31 | disposition home or self-care (01) ==
LOC: C.ER 15:49
DX: N94.6 Dysmenorrhea, unspecified (principal)

== ENCOUNTER 2017-11-21 18:52 | Emergency (ER) | payer SELFPAY ==
[2017-11-21 18:52] VITALS: BMI 46.5
--- NOTE | 2017-11-21 19:59 | C.PDOC ---
History Of Present Illness 27 y/o female presents to the ER complaining of irregular vaginal bleeding. Patient states that she had her period x2 in October 2017. Patient reports that she took 2 tests at home, 1 test was positive and 1 test was negative. She would like to confirm whether she is . Currently, patient denies having nausea, vomiting, abdominal pain, and vaginal bleeding. Time Seen by Provider: 11/21/17 19:24 Chief Complaint (Nursing): Abdominal Pain History Per: Patient History/Exam Limitations: no limitations Onset/Duration Of Symptoms: Days Current Symptoms Are (Timing): Gone Severity: Moderate Past Medical History Reviewed: Historical Data, Nursing Documentation, Vital Signs Vital Signs: Last Vital Signs Temp 98 F 11/21/17 20:16 Pulse 80 11/21/17 20:16 Resp 14 11/21/17 20:16 BP 110/70 11/21/17 20:16 Pulse Ox 98 11/21/17 20:43 - Medical History PMH: No Chronic Diseases Surgical History: - [facility] Procedures LARYGNOSCOPY AND OTH TRACHEOSCOPY (12/21/13) Family History: States: No Known Family Hx - Social History Hx Tobacco Use: No Hx Alcohol Use: Yes Hx Substance Use: No - Immunization History Hx Tetanus Toxoid Vaccination: No Hx Influenza Vaccination: No Hx Pneumococcal Vaccination: No Review Of Systems Except As Marked, All Systems Reviewed And Found Negative. Gastrointestinal: Negative for: Nausea, Vomiting, Abdominal Pain Genitourinary: Positive for: Vaginal Bleeding (currently resolved) Physical Exam - Physical Exam Appears: Non-toxic, No Acute Distress Skin: Normal Color, Warm, Dry Head: Atraumatic, Normacephalic Eye(s): bilateral: Normal Inspection Nose: Normal Oral Mucosa: Moist Neck: Supple Chest: Symmetrical Gastrointestinal/Abdominal: Soft, No Tenderness, No Guarding, No Rebound, Other (obese) Back: Normal Inspection, No CVA Tenderness Pelvic: Other (deferred) Neurological/Psych: Oriented x3, Normal Speech ED Course And Treatment O2 Sat by Pulse Oximetry: 98 (RA) Pulse Ox Interpretation: Normal Progress Note: POC Urine Pregnany Test was negative. Patient has been informed about the results. Patient has been discharged and instructed to follow up with PMD/ COMMUNICATIONS AGENT. Disposition Counseled Patient/Family Regarding: Diagnosis, Need For Followup - Disposition Referrals: [facility] [Outside] Disposition: HOME/ ROUTINE Disposition Time: 19:59 Condition: STABLE Additional Instructions: Please follow up with PMD/ OBGYN Return to ER if worse Forms: General Discharge Instructions - Clinical Impression Clinical Impression: Encounter for test - PA / SUPERVISOR GLYCERIN / Resident Statement MD/DO has reviewed & agrees with the documentation as recorded. - Scribe Statement The provider has reviewed the documentation as recorded by the Richi Fuentes Provider Attestation All medical record entries made by the Richi were at my direction and personally dictated by me. I have reviewed the chart and agree that the record accurately reflects my personal performance of the history, physical exam, medical decision making, and the department course for this patient. I have also personally directed, reviewed, and agree with the discharge instructions and disposition.
[2017-11-21 20:17] VITALS: BP 110/70; PULSE 80; RESP 14; TEMP 98
[2017-11-21 20:38] VITALS: O2SAT 98
== END 2017-11-21 20:17 | disposition home or self-care (01) ==
LOC: C.ER 18:52
DX: Z32.02 Encounter for pregnancy test, result negative (principal)

== ENCOUNTER 2017-12-27 13:35 | Emergency (ER) | payer OTHER ==
[2017-12-27 13:35] VITALS: BMI 46.5
[2017-12-27 13:41] VITALS: BP 116/77; PULSE 87; RESP 18; TEMP 98.2; O2SAT 94
--- NOTE | 2017-12-27 13:45 | C.PDOC ---
History Of Present Illness <Omid Bella - Last Filed: 12/27/17 13:45> <Kady Sommers - Last Filed: 12/27/17 14:06> 27 y/o female presents to the ER complaining of abdominal pain which began yesterday. Patient is also complaining that her breasts are tender. Patient denies having nausea, vomiting, diarrhea, dysuria, hematuria, fever and chills. (Kady Sommers) <Omid Bella - Last Filed: 12/27/17 13:45> History Per: Patient History/Exam Limitations: no limitations Onset/Duration Of Symptoms: Days Current Symptoms Are (Timing): Still Present Severity: Moderate <Kady Sommers - Last Filed: 12/27/17 14:06> Time Seen by Provider: 12/27/17 13:45 Chief Complaint (Nursing): Abdominal Pain Past Medical History Surgical History: Family History: States: Unknown Family Hx - Social History Hx Tobacco Use: No Hx Alcohol Use: Yes Hx Substance Use: No - Immunization History Hx Tetanus Toxoid Vaccination: No Hx Influenza Vaccination: No Hx Pneumococcal Vaccination: No <Omid Bella - Last Filed: 12/27/17 13:45> Reviewed: Historical Data, Nursing Documentation, Vital Signs - Medical History PMH: No Chronic Diseases Family History: States: No Known Family Hx <Kady Sommers - Last Filed: 12/27/17 14:06> Vital Signs: Last Vital Signs Temp 98.2 F 12/27/17 13:38 Pulse 87 12/27/17 13:38 Resp 18 12/27/17 13:38 BP 116/77 12/27/17 13:38 Pulse Ox 94 L 12/27/17 13:45 - [facility] Procedures LARYGNOSCOPY AND OTH TRACHEOSCOPY (12/21/13) ED Course And Treatment O2 Sat by Pulse Oximetry: 94 <Omid Bella - Last Filed: 12/27/17 13:45> Disposition <Omid Bella - Last Filed: 12/27/17 13:45> <Kady Sommers - Last Filed: 12/27/17 14:06> - Disposition Forms: [facility] ([place] Citizen)
[2017-12-27 14:23] LABS: HCG,QUALITATIVE URINE NEGATIVE (NEGATIVE)
[2017-12-27 14:39] LABS: SQUAMOUS EPITHIAL 3 /hpf (0-5); URINE BACTERIA RARE (<OCC); URINE BILIRUBIN NEGATIVE (NEGATIVE); URINE BLOOD NEGATIVE (NEGATIVE); URINE CLARITY Clear (Clear); URINE COLOR Yellow (YELLOW); URINE GLUCOSE (UA) NORMAL (Normal); URINE LEUKOCYTE ESTERASE NEG Leu/uL (Negative); URINE PROTEIN NEGATIVE (NEGATIVE)
--- NOTE | 2017-12-27 15:05 | C.PDOC ---
History Of Present Illness 27 y/o female presents to the ER complaining of abdominal pain which began yesterday. Patient is also complaining that her breasts are tender. Patient denies having nausea, vomiting, diarrhea, dysuria, hematuria, fever and chills. Time Seen by Provider: 12/27/17 13:45 Chief Complaint (Nursing): Abdominal Pain History Per: Patient History/Exam Limitations: no limitations Onset/Duration Of Symptoms: Days Current Symptoms Are (Timing): Still Present Severity: Moderate Past Medical History Reviewed: Historical Data, Nursing Documentation, Vital Signs Vital Signs: Last Vital Signs Temp 98.2 F 12/27/17 13:38 Pulse 87 12/27/17 13:38 Resp 18 12/27/17 13:38 BP 116/77 12/27/17 13:38 Pulse Ox 94 L 12/27/17 15:05 - Medical History PMH: No Chronic Diseases Surgical History: - [facility] Procedures LARYGNOSCOPY AND OTH TRACHEOSCOPY (12/21/13) Family History: States: No Known Family Hx - Social History Hx Tobacco Use: No Hx Alcohol Use: Yes Hx Substance Use: No - Immunization History Hx Tetanus Toxoid Vaccination: No Hx Influenza Vaccination: No Hx Pneumococcal Vaccination: No Review Of Systems Except As Marked, All Systems Reviewed And Found Negative. Constitutional: Negative for: Fever, Chills Gastrointestinal: Positive for: Abdominal Pain. Negative for: Nausea, Vomiting , Diarrhea Genitourinary: Negative for: Dysuria, Hematuria Physical Exam - Physical Exam Appears: Non-toxic, No Acute Distress Skin: Normal Color, Warm, Dry Head: Atraumatic, Normacephalic Eye(s): bilateral: Normal Inspection Nose: Normal Oral Mucosa: Moist Neck: Supple Chest: Symmetrical Cardiovascular: Rhythm Regular Respiratory: Normal Breath Sounds, No Rales, No Rhonchi, No Wheezing Gastrointestinal/Abdominal: Soft, Tenderness (minimal suprapubic tenderness), No Guarding, No Rebound Neurological/Psych: Oriented x3, Normal Speech ED Course And Treatment O2 Sat by Pulse Oximetry: 94 (RA) Pulse Ox Interpretation: Normal Medical Decision Making Medical Decision Making: Plan: --Tylenol PO --Motrin PO --HCG, Qual. --UA Disposition Counseled Patient/Family Regarding: Studies Performed, Diagnosis, Need For Followup - Disposition Disposition: HOME/ ROUTINE Disposition Time: 15:03 Condition: STABLE Forms: [facility] (Salvadorean), General Discharge Instructions - POA Present On Arrival: None - Clinical Impression Clinical Impression: Suprapubic abdominal pain - Scribe Statement The provider has reviewed the documentation as recorded by the Scribe Cheko Fuentes Provider Attestation: All medical record entries made by the Scribe were at my direction and personally dictated by me. I have reviewed the chart and agree that the record accurately reflects my personal performance of the history, physical exam, medical decision making, and the department course for this patient. I have also personally directed, reviewed, and agree with the discharge instructions and disposition.
== END 2017-12-27 15:16 | disposition home or self-care (01) ==
LOC: C.ER 13:35
DX: R10.2 Pelvic and perineal pain (principal)